=== PATIENT | male | born 1990 | race Two or more races ===

== ENCOUNTER 2017-10-31 13:17 | Emergency (ER) | payer OTHER ==
[~2017-10-31] VITALS: Ht 175.3 cm; Wt 68.0 kg
[2017-10-31] MEDS ORDERED: MULTIVITAMINS1 EAC2 ORAL (13:30)
[2017-10-31] MEDS ORDERED: ZOFRAN4 M3 ORAL (14:06)
[2017-10-31] MEDS ORDERED: IBUPROFEN600 MG ORAL (14:06)
[2017-10-31 14:25] VITALS: BP 126/76
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
== END 2017-10-31 14:25 | disposition home or self-care (01) ==
LOC: EMR 14:25
DX: S06.0X0A Concussion without loss of consciousness, initial encounter (principal); S00.83XA Contusion of other part of head, initial encounter; Y04.2XXA Assault by strike against or bumped into by another person, initial encounter; Y92.89 Other specified places as the place of occurrence of the external cause
CPT/HCPCS: 99283